=== PATIENT | male | born 1950 | race African-American/Black ===

== ENCOUNTER 2019-06-05 12:02 | Observation (INO) ==
[2019-06-05 14:03] LABS: Basophils % 0.1 % (0.0-0.8); Hematocrit 42.2 VOL% (42.0-52.0); Hemoglobin 14.5 GM/DL (14.0-18.0); Immature Granulocytes % 0.3 %; Immature Granulocytes Absolute 0.05 #; Lymphocytes # 2.2 10*3/uL (1.4-4.0); Lymphocytes % 14.2 % (21.2-54.2); Mean Corpuscular HGB Conc 34.4 GM/DL (32-36); Mean Corpuscular Volume 82.7 FL (87-102); Monocytes % 5.7 % (1.7-12.7); Neutrophils % 79.7 % (38.7-73.9); Platelet Count 312 T/CUMM (130-400); Red Cell Distribution Width 13.8 % (9.3-17.3); White Blood Count 15.4 T/CUMM (4-12)
[2019-06-05 14:03] LABS: Apearance,Urine CLEAR (Clear); Bacteria,Urine Occasional /HPF (Few); Bilirubin,Urine Negative (Negative); Blood, Urine Small mg/dL (Negative); Glucose,Urine (UA) Negative (Negative); Hyaline Casts,Urine 3 /LPF (0-3); Ketones,Urine 5 mg/dL (Negative); Mucus,Urine Occasional /LPF (Occasional); Nitrite,Urine Negative (Negative); Protein,Urine 30 MG/DL; RBC,Urine 2 /HPF (0-4); Squamous Epithelial Cell,Urine Occasional /HPF (0-10); Urine Color Yellow (Yellow); Urine Specific Gravity 1.023 (1.001-1.035); Urine Urobilinogen < 2.0 EU/DL (0.2-1.0); WBC,Urine 1 /HPF (0-6)
[2019-06-05 14:18] LABS: Albumin 4.1 G/DL (3.4-5.0); Bilirubin,Total 0.5 MG/DL (0.2-1.0); Calcium 10.2 MG/DL (8.5-10.1); Osmolality,Calculated 279.7 MOS/KG (273-304); Total Protein 9.1 G/DL (6.4-8.3)
[2019-06-05 14:53] LABS: Barbiturates Screen,Urine Negative (Negative); Benzodiazepines Screen,Urine Negative (Negative); Cannabinoid Screen,Urine Negative (Negative); Opiate Screen,Urine Negative (Negative); Phencyclidine Screen,Urine Negative (Negative)
[2019-06-05 16:45] LABS: Free T4 (Free Thyroxine) 0.87 NG/DL (0.76-1.46); Thyroid Stimulating Hormone 1.49 uIU/ml (0.358-3.74)
[2019-06-05 17:00] LABS: CKMB % 0.3 %; Troponin I 0.433 NG/ML (0.00-0.045)
[2019-06-05 17:47] LABS: PT Patient Result 10.7 SECS (9.6-12.2); Partial Thromboplastin Time 24.5 SECS (20.8-36.0)
[2019-06-05] MEDS ORDERED: MAGNESIUM SULF RIDER 4 GM in PREMIX 1 EACH IV PRN (18:10)
[2019-06-05] MEDS ORDERED: ONDANSETRON 4 MG/2 ML VIAL IV PRN (18:10)
[2019-06-05] MEDS ORDERED: ALUM/MAG/SIMETH/LIDO VISC 1:1 30 ML BOTTLE PO PRN (18:10)
[2019-06-05] MEDS ORDERED: GLUCAGON 1 MG VIAL IM PRN ×2 (18:10)
[2019-06-05] MEDS ORDERED: MAGNESIUM SULF RIDER 2 GM in PREMIX 1 EACH IV PRN (18:10)
[2019-06-05] MEDS ORDERED: DEXTROSE 50% 25 GM/50 ML VIAL IV PRN (18:10)
[2019-06-05] MEDS ORDERED: DEXTROSE 10% 250 ML BAG IV PRN (18:10)
[2019-06-05] MEDS: INSULIN LISPRO 100 UNIT/ML SUBCUT SCH (20:59)
[2019-06-05] MEDS: ENOXAPARIN 40 MG/0.4 ML SYRINGE SUBCUT SCH (21:01)
[2019-06-05] MEDS: SODIUM CHLORIDE 0.9% 1,000 ML IV SCH (21:03)
[2019-06-05 21:15] LABS: CKMB % 0.3 %; Troponin I 0.377 NG/ML (0.00-0.045)
[2019-06-06] MEDS: SODIUM CHLORIDE 0.9% 1,000 ML IV SCH ×5 (01:36→21:29)
[2019-06-06 03:16] LABS: Basophils % 0.4 % (0.0-0.8); Eosinophils # 0.1 10*3/uL (0.0-0.87); Eosinophils % 0.6 % (0.00-10.9); Hematocrit 36.2 VOL% (42.0-52.0); Hemoglobin 12.4 GM/DL (14.0-18.0); Immature Granulocytes % 0.3 %; Immature Granulocytes Absolute 0.03 #; Lymphocytes # 3.4 10*3/uL (1.4-4.0); Mean Corpuscular HGB Conc 34.3 GM/DL (32-36); Mean Corpuscular Volume 83.2 FL (87-102); Mean Platelet Volume 10.3 FL (9.6-12.0); Monocytes % 10.5 % (1.7-12.7); Neutrophils % 56.2 % (38.7-73.9); Platelet Count 277 T/CUMM (130-400); Red Blood Count 4.35 MC/CUMM (3.8-5.5); Red Cell Distribution Width 13.6 % (9.3-17.3); White Blood Count 10.5 T/CUMM (4-12)
[2019-06-06 03:33] LABS: Alanine Aminotransferase 40 U/L (16-61); Albumin 3.1 G/DL (3.4-5.0); Alkaline Phosphatase 49 U/L (45-117); Aspartate Amino Transferase 92 U/L (0-37); Bilirubin,Total < 0.39 MG/DL (0.2-1.0); Blood Urea Nitrogen 24 MG/DL (7-18); Calcium 8.4 MG/DL (8.5-10.1); Estimated Glom Filtration Rate 61 ML/MIN; Glucose 113 MG/DL (74-106); Osmolality,Calculated 287.1 MOS/KG (273-304); Total Protein 6.8 G/DL (6.4-8.3)
[2019-06-06 03:47] LABS: CKMB % 0.3 %
[2019-06-06 03:48] LABS: Troponin I 0.286 NG/ML (0.00-0.045)
[2019-06-06] MEDS: PANTOPRAZOLE 40 MG TABLET PO SCH (08:49)
[2019-06-06] MEDS: INSULIN LISPRO 100 UNIT/ML SUBCUT SCH ×4 (08:50→21:25)
[2019-06-06] MEDS: POTASSIUM CHLORIDE 20 MEQ TABLET PO PRN ×4 (09:39→16:17)
[2019-06-06 10:31] LABS: CKMB % 0.2 %; Troponin I 0.18 NG/ML (0.00-0.045)
[2019-06-06] MEDS ORDERED: ROSUVASTATIN 10 MG TABLET PO SCH (21:00)
[2019-06-06] MEDS: ENOXAPARIN 40 MG/0.4 ML SYRINGE SUBCUT SCH (21:25)
[2019-06-07] MEDS: SODIUM CHLORIDE 0.9% 1,000 ML IV SCH ×2 (03:30→11:26)
[2019-06-07 05:43] LABS: Calcium 7.6 MG/DL (8.5-10.1); Osmolality,Calculated 288.7 MOS/KG (273-304)
[2019-06-07] MEDS: POTASSIUM CHLORIDE 20 MEQ TABLET PO PRN (05:57)
[2019-06-07] MEDS: INSULIN LISPRO 100 UNIT/ML SUBCUT SCH (08:44)
[2019-06-07] MEDS: PANTOPRAZOLE 40 MG TABLET PO SCH (08:51)
[2019-06-07 08:57] VITALS: BP 138/66
[2019-06-07] MEDS ORDERED: CHLORTHALIDONE 25 MG TABLET PO SCH (09:00)
[2019-06-07] MEDS ORDERED: amLODIPine 10 MG TABLET PO SCH (09:00)
== END 2019-06-07 11:17 | disposition home or self-care (01) ==
LOC: N.ED 12:02 → N.EDINP 12:02 → N.2W 18:08
PROVIDERS: ADMIT Internal Medicine; ATTEND Internal Medicine